=== PATIENT | female | born 1965 | race African-American/Black ===

== ENCOUNTER 2025-01-07 07:00 | Day surgery (SDC) | payer BC ==
[~2025-01-07] VITALS: Ht 172.7 cm; Wt 92.5 kg
[2025-01-07] VITALS (7 sets, daily range): BP systolic 118–130; BP diastolic 72–83; PULSE 51–59; RESP 11–17; O2SAT 93–97
[~2025-01-07 07:00] MED LIST: AMLO1TAB22 PO; ASPI-543 PO; ATOR40TA52 PO; MAGN400T40 PO; MULT-225 PO
[2025-01-07] MEDS: IODIXANOL 320MG/ML 100ML BTL IV ONE (07:27)
[2025-01-07] MEDS: ANGIOMAX 250 MG VIAL IV ONE (07:53)
[2025-01-07] MEDS: LIDOCAINE 2%HCL (LOCAL ANESTH.) INJ 20ML MDV ONE (07:54)
[2025-01-07] MEDS: VERAPAMIL 2.5MG/ML INJ 2ML VIAL IV ONE (07:54)
[2025-01-07] MEDS: MIDAZOLAM HCL 2MG/2ML 2ml VIAL (1mg/ml) ONE (07:54)
[2025-01-07] MEDS: HEPARIN SODIUM (PORCINE) 5000 UNITS/ML 1ML VIAL ONE (07:54)
[2025-01-07] MEDS: SODIUM CHL 0.9% 0 ML ONE (07:54)
[2025-01-07] MEDS: fentaNYL CITRATE 100 MCG/2 ML VL ONE (07:54)
[2025-01-07] MEDS: NITROGLYCERIN 50MG/250ML 250 ML IV ONE (08:01)
--- NOTE | 2025-01-07 08:42 | DVHOP2 ---
Operative Report - 2 Report Details Date: 01/07/25 Preop Diagnosis: CAD Postop Diagnosis: Normal coronaries Surgeon: Ting Stark MD Anesthesiologist: Conscious sedation Anesthesia: Mac, Local Consent: The patient was informed of the risks and benefits of the procedure. These include but are not limited to complications of anesthesia, postoperative infection, incomplete relief of symptoms, recurrence of symptoms, damage to blood vessels, nerves and tendons, deep venous thrombosis, pulmonary embolism and possible need for repeat surgery in the future. Complications: No complications Findings: Normal coronaries. Normal left ventricular function. Indications for Surgery: Chest pain Name of Procedure Performed Left heart catheterization. Bilateral cine coronary angiography. Left ventriculography. Procedure Details Procedure Details: Prior local anesthesia with 2% lidocaine to the right wrist and full informed consent obtained the patient was prepped and draped in usual fashion followed by placement of a multipurpose catheter into the right radial artery. Subsequent left heart catheterization and bilateral cine coronary angiography performed. Hemodynamics aortic blood pressure was 110/70. End-diastolic pressure was 16 without gradient across the aortic valve on pullback. Coronary anatomy: The RCA is a large dominant vessel it is normal in its proximal mid and distal segments. The PDA and posterolateral branches are normal. The left main is normal. Left anterior descending is large and normal with two diagonals free of significant disease. Septals are normal. Circumflex is large with two marginals free of significant disease. Ventriculography in the HAM projection shows an ejection fraction of about 55% Impression: Normal left ventricular end-diastolic pressure at rest with normal ejection fraction. No significant CAD. Recommendations: Medical therapy is warranted. Continue risk factor modification. Condition Good Disposition Home Date of Service: Jan 07, 2025 Billing Provider: TING STARK Sr., MD Cardiology Common Codes: 89413-TDLXCLO INP/OBS CARE (High) Cardiology Procedure Codes: 43788-PKID HEART CATH W/INTRA INJ TING STARK Sr., MD Jan 07, 2025 08:42
== END 2025-01-07 10:40 | disposition home or self-care (01) ==
LOC: CATH 07:00
PROVIDERS: ATTEND Internal Medicine
DX: I25.10 Atherosclerotic heart disease of native coronary artery without angina pectoris (principal); R94.39 Abnormal result of other cardiovascular function study; I42.2 Other hypertrophic cardiomyopathy; I11.0 Hypertensive heart disease with heart failure; I50.9 Heart failure, unspecified; F17.200 Nicotine dependence, unspecified, uncomplicated; Z79.82 Long term (current) use of aspirin; Z79.899 Other long term (current) drug therapy
CPT/HCPCS: 93458; C1769; C1894; J1644; J2250; J3010; J7040; Q9967; 99152